=== PATIENT | female | born 1955 | race Caucasian/White ===

== ENCOUNTER → 2019-02-24 | Outpatient (CLI) | payer OTHER ==
--- NOTE | 2019-02-24 12:53 | PCVCIMAG ---
APPROVED REPORT Doppler Spectral Velocity Analysis PSV / EDVPSV / EDV ECA (R) 65 / 14 cm/sECA (L) 65 / 16 cm/s dICA (R) 59 / 27 cm/sdICA (L) 68 / 32 cm/s Geeta (R) 74 / 29 cm/smICA (L) 52 / 26 cm/s pICA (R) 47 / 17 cm/spICA (L) 41 / 15 cm/s Bulb (R) 69 / 21 cm/sBulb (L) 43 / 17 cm/s dCCA (R) 83 / 22 cm/sdCCA (L) 79 / 22 cm/s mCCA (R) 69 / 22 cm/smCCA (L) 77 / 23 cm/s Vert (R) 46 / 12 cm/sVert (L) 41 / 10 cm/s ICA/CCA 0.89ICA/CCA 0.86 Findings The right carotid bulb has no significant plaque. The right proximal internal carotid artery shows no significant stenosis. The right common carotid artery shows no significant stenosis. The right external carotid artery shows no significant stenosis. The left carotid bulb has mild plaque. The left proximal internal carotid artery shows no significant stenosis. The left common carotid artery shows no significant stenosis. The left external carotid artery shows no significant stenosis. Conclusion 1. Normal right carotid artery. 2. Mild left internal carotid artery plaquing without significant stenosis. 3. Antegrade vertebral flow.
--- NOTE | 2019-02-24 13:19 | PCVCIMAG ---
APPROVED REPORT Study performed: 02/24/2019 11:01:39 Exam: Stress Echocardiogram Indication: bradycardia, chest pressure, fam hx cad, assess chronotropic response Patient Location: Echo lab Stress Nurse: Char Gomez RN Status: routine Ht: 5 ft 6 in HR: 80 bpm BP: 108/60 mmHg Rhythm: NSR Procedure The patient underwent an Exercise Stress Test using the Brando Protocol. Blood pressure, heart rate, and EKG were monitored. An Echocardiogram was performed by hvac field service technician in four stages in quad fashion. At peak stress, four selected images were obtained and placed side by side with resting images for comparison. Stress Test Details Stress Test: Exercise stress testing was performed using a Branod protocol. HR Resting HR: 80 bpmMax Heart Rate (APMHR): 155 bpm Max HR Achieved: 155 bpmTarget HR (85% APMHR): 131 bpm % of APMHR: 100 Recovery HR: 101 bpm HR response to stress: Normal HR response to stress BP Resting BP: 108/60 mmHg Max BP: 140/70 mmHg Recovery BP: 110/64 mmHg BP response to stress: Normal blood pressure response to stress. ECG Resting ECG: Sinus Rhythm Stress ECG: Sinus Rhythm ST Change: Normal Arrhythmia: rare PVC Recovery ECG: Sinus Rhythm Recovery ST Change: Normal Recovery Arrhythmia: None Clinical Reason for Termination: Maximal effort Stress Symptoms: chest pressure at rest that did not change with exertion Exercise duration: 10 min 24 sec Highest Stage Achieved: Stage 4: 4.2 mph at 16% grade. Exercise capacity: 13.4 METs Overall Exercise Capacity for Age: Good Scale: Active Angina Score: None Pre-Stress Echo The resting Echocardiogram showed normal left ventricular contractility with an estimated Ejection Fraction of about >55%. Normal wall motion in all segments on baseline images. Post-Stress Echo The stress Echocardiogram showed normal left ventricular contractility with an estimated Ejection Fraction of about 60-65%. Normal augmentation of wall motion in all segments on post stress images. Clinical No clinical or ECG evidence for ischemia. Conclusion Clinical Response: Non-ischemic Exercise Capacity: Superior Stress ECG Response: Non-ischemic Stress Echo Images: Non-ischemic The left ventricle is normal in size and wall thickness in both the rest and stress images. Other Information Study Quality: Adequate <Conclusion> The left ventricle is normal in size and wall thickness in both the rest and stress images.
== END | disposition home or self-care (01) ==
LOC: PCVCIMAG 10:58
PROVIDERS: ATTEND Internal Medicine Cardiovascular Disease
DX: I65.22 Occlusion and stenosis of left carotid artery (principal); E78.01 Familial hypercholesterolemia; Z88.8 Allergy status to other drugs, medicaments and biological substances; Z87.891 Personal history of nicotine dependence; Z82.49 Family history of ischemic heart disease and other diseases of the circulatory system
CPT/HCPCS: 93325; 93351; 93880

== ENCOUNTER → 2019-04-17 | Outpatient (CLI) | payer OTHER | END | disposition home or self-care (01) | LOC: PCVCCLINIC 08:15 | PROVIDERS: ATTEND Internal Medicine Cardiovascular Disease | DX: E78.5 Hyperlipidemia, unspecified (principal); E78.01 Familial hypercholesterolemia; Z88.5 Allergy status to narcotic agent | CPT/HCPCS: 36415; 80061 ==

== ENCOUNTER → 2019-06-02 | Outpatient (CLI) | payer OTHER | END | disposition home or self-care (01) | LOC: PCVCCLINIC 08:15 | PROVIDERS: ATTEND Internal Medicine Cardiovascular Disease | DX: E78.00 Pure hypercholesterolemia, unspecified (principal); E78.5 Hyperlipidemia, unspecified; Z88.8 Allergy status to other drugs, medicaments and biological substances | CPT/HCPCS: 36415; 80061 ==